=== PATIENT | male | born 1975 | race Caucasian/White ===

== ENCOUNTER → 2020-02-03 | Outpatient (CLI) | payer BC | END | disposition home or self-care (01) | LOC: LABWHC1 15:16 | PROVIDERS: ATTEND Emergency Medicine | DX: Z20.828 Contact with and (suspected) exposure to other viral communicable diseases (principal) | CPT/HCPCS: U0003; C9803 ==

== ENCOUNTER → 2020-02-12 | Outpatient (CLI) | payer BC | END | disposition home or self-care (01) | LOC: LABWHC1 08:39 | PROVIDERS: ATTEND Emergency Medicine | DX: Z20.828 Contact with and (suspected) exposure to other viral communicable diseases (principal) | CPT/HCPCS: U0003; C9803 ==

== ENCOUNTER → 2021-02-10 | Outpatient (CLI) | payer OTHER ==
--- NOTE | 2021-02-10 15:19 | XR ---
EXAMINATION TYPE: XR forearm RT DATE OF EXAM: 02/10/2021 COMPARISON: None HISTORY: Pain after lifting TECHNIQUE: 2 views of the right forearm FINDINGS: Radius aligns normally with the humerus. No acute fracture or dislocation is evident. Soft tissues appear normal.. A follow up exams can be performed 7-10 days from acute trauma for continued pain IMPRESSION: 1. Normal 2 view right forearm.
--- NOTE | 2021-02-10 15:20 | XR ---
EXAMINATION TYPE: XR elbow complete RT DATE OF EXAM: 02/10/2021 COMPARISON: None HISTORY: Pain after lifting TECHNIQUE: 3 view right elbow FINDINGS: Radius aligns normally with the humerus. No acute displaced fractures are evident. Anterior fat pad is normal. No elevation of posterior fat pad is evident. Soft tissues are normal. Graphic fo llow up exams can be performed 7-10 days from acute trauma for continued pain IMPRESSION: 1. Normal three-view right elbow
== END | disposition home or self-care (01) ==
LOC: RADXRMAIN 14:55
PROVIDERS: ATTEND Emergency Medicine
DX: M25.521 Pain in right elbow (principal); M79.631 Pain in right forearm

== ENCOUNTER → 2021-02-24 | Outpatient (CLI) | payer OTHER ==
--- NOTE | 2021-02-25 05:24 | MR ---
EXAMINATION TYPE: MR elbow RT wo con DATE OF EXAM: 02/24/2021 COMPARISON: None HISTORY: Right elbow sprain, lifting injury Multiplanar multiecho imaging of the right elbow without contrast. Triceps tendon is intact. There is elbow joint effusion. There is fluid around the biceps tendon. The re is almost complete avulsion of the biceps tendon from the radial tubercle. The brachialis tendon i s intact. Radial head is intact. There is no evidence of a fracture. The collateral ligaments appear intact. IMPRESSION: Elbow joint effusion with complete tear of the biceps tendon at the radial tuberosity. There is fluid around the tendon. There is no significant retraction. No fracture seen. No evidence of ligamentous tear.
== END | disposition home or self-care (01) ==
LOC: RADMRIMAIN 17:06
PROVIDERS: ATTEND Emergency Medicine
DX: S53.401A Unspecified sprain of right elbow, initial encounter (principal); M25.421 Effusion, right elbow; X58.XXXA Exposure to other specified factors, initial encounter

== ENCOUNTER 2021-03-09 10:44 | Day surgery (SDC) | payer BC, OTHER ==
[2021-03-08 14:30] VITALS: BMI 31.1
--- NOTE | 2021-03-08 18:21 | P.HPOR ---
History of Present Illness H&P Date: 03/08/21 Chief Complaint: Right distal biceps tendon rupture Subjective: This is a 45 year old male that presents today for initial evaluation regarding a right elbow injury that occurred on 02/10/21, patient was lifting a slide door at work and suddenly felt a pop. He was seen at [facility], xrays were taken. He was having continued pain and subsequently an MRI was ordered on 02/24/21 which revealed a complete distal biceps tendon rupture. He presents today with wea kness, pain, and paresthesias on the dorsal radial forearm. Physical Examination: RUE: AIN/PIN/Radial/Ulnar/Median motor intact. Radial/Ulnar/Median SILT. 2+/4 Radial/Ulnar pulses palpated. Positive hook test. TTP in antecubital fossa with weakness with supination. Subjective paresthesias in LABCN distribution. Imaging: X-Rays of the right elbow reviewed from 02/10/21 demonstrate no abnormality. MRI of right elbow from 02/24/21 demonstrate complete tear of the distal biceps from its insertion at the radial tuberosity with minimal retraction present. Impression: 1.) Right distal biceps tendon rupture. Plan: Diagnosis and treatment options were discussed with the patient. We reviewed risks and benefits of operative vs non operative treatment and discussed the functional limitations that non-operative treatment would entail including possible loss of sustained supination strength and flexion strength. He wishes to proceed with surgical intervention after risks and benefits of surgery including bleeding, infection, damage to surrounding tissue, need for further surgery, residual numbness were discussed and the patient wished to go forward with surgery. He patient was agreeable with this plan of action and will be scheduled as soon as possible for right distal biceps tendon repair with Arthrex cortical button tensions slide technique. I anticipate 6-8 weeks off of work until he would be able to use the right arm. Pre op labs/ekg are ordered. -Alejandro Zuleta DO Orthopedic Hand/Upper Extremity Surgeon Past Medical History Past Medical History: Hearing Disorder / Deafness Additional Past Medical History / Comment(s): Tinnitus. Diverticulitis. "Snore a lot, maybe I have Sleep Apnea but have never been tested." History of Any Multi-Drug Resistant Organisms: None Reported Past Surgical History: Hernia Repair Additional Past Surgical History / Comment(s): Umbilical hernia repair. Past Anesthesia/Blood Transfusion Reactions: No Reported Reaction Past Psychological History: No Psychological Hx Reported Smoking Status: Never smoker Past Alcohol Use History: Occasional Past Drug Use History: None Reported - Past Family History Mother Family Medical History: Cancer Additional Family Medical History / Comment(s): Lung Cancer. Medications and Allergies Home Medications Medication Instructions Recorded Confirmed Type Multivitamins, Thera [Multivitamin 1 tab PO DAILY 03/08/21 03/08/21 History (formulary)] Allergies Allergy/AdvReac Type Severity Reaction Status Date / Time No Known Allergies Allergy Verified 03/08/21 14:19 Physical Examination Osteopathic Statement: *. No significant issues noted on an osteopathic structural exam other than those noted in the History and Physical/Consult.
[2021-03-09] MEDS ORDERED: ONDANSETRON 4 MG/2 ML VIAL IVP ONE (11:32)
[2021-03-09] MEDS ORDERED: LACTATED RINGERS 1,000 ML IV SCH (11:32)
[2021-03-09] MEDS ORDERED: LIDOCAINE 1% (10MG/ML) FOR IV START INTRADERMA PRN (11:32)
[2021-03-09 11:48] LABS: Basophils % (A) 1 %; Eosinophils # (A) 0.1 k/uL (0-0.7); Eosinophils % (A) 3 %; HCT 43.3 % (39.0-53.0); HGB 15.8 gm/dL (13.0-17.5); Lymphocytes # (A) 1.6 k/uL (1.0-4.8); Lymphocytes % (A) 37 %; MCH 30.8 pg (25.0-35.0); MCHC 36.5 g/dL (31.0-37.0); MCV 84.4 fL (80.0-100.0); Mean Platelet Volume 10.8; Monocytes # (A) 0.4 k/uL (0-1.0); Monocytes % (A) 10 %; Neutrophils % (A) 46 %; Platelet Count 156 k/uL (150-450); RBC 5.13 m/uL (4.30-5.90); RDW 12.4 % (11.5-15.5); WBC 4.3 k/uL (3.8-10.6)
[2021-03-09] MEDS ORDERED: DEXAMETHASONE SOD PHOSPHATE 4 MG/ML 1 ML VIAL IV ONE (11:54)
[2021-03-09 12:02] LABS: Potassium 4.5 mmol/L (3.5-5.1)
[2021-03-09] MEDS ORDERED: MIDAZOLAM 2 MG/2 ML VIAL IV ONE (12:40)
[2021-03-09] MEDS ORDERED: KETAMINE 10 MG/ML 20 ML VIAL ONE (13:27)
[2021-03-09] MEDS ORDERED: ROPIVACAINE 5 MG/ML 30 ML VIAL ONE (13:27)
[2021-03-09] MEDS ORDERED: .fentaNYL (PF) 50 MCG/ML AMP ONE (13:27)
[2021-03-09] MEDS ORDERED: MIDAZOLAM 2 MG/2 ML VIAL ONE (13:27)
[2021-03-09] MEDS ORDERED: PROPOFOL 10 MG/ML 20 ML VIAL IV ONE (13:27)
[2021-03-09] MEDS ORDERED: LACTATED RINGERS 1,000 ML IV ONE (14:07)
--- NOTE | 2021-03-09 14:35 | P.ANPRN ---
Procedure Note - Anesthesia - Nerve Block Performed Right Supraclavicular Time Out Performed: Yes (:59) Date of Procedure: 03/09/21 Procedure Start Time: :59 Procedure Stop Time: 13:08 Location of Patient: PreOp Indication: Acute Post-Operative Pain, Requested by Surgeon (Dr Zuleta) Sedation Type: Sedate with meaningful contact maintained Preparation: Sterile Prep Position: Supine Catheter: None Needle Types: Pajunk Needle Gauge: Other (see comment) (22g) Ultrasound used to visualize needle placement: Yes Ultrasound used to observe medication spread: Yes Injectate: 0.5% Ropivacaine (see comment for volume) (20cc) Blood Aspirated: No Pain Paresthesia on Injection Noted: No Resistance on Injection: Normal Image Stored and Saved: Yes Events: Uneventful and Well Tolerated
[2021-03-09 16:09] VITALS: TEMP 97.4
[2021-03-09] MEDS: HYDROmorphone 0.5 MG/0.5 ML SYRINGE IVP PRN ×3 (16:26→16:42)
[2021-03-09] MEDS ORDERED: diphenhydrAMINE 50 MG/ML 1 ML VIAL ONE (16:31)
[2021-03-09] MEDS ORDERED: diphenhydrAMINE 50 MG/ML 1 ML VIAL IVP ONE (16:33)
[2021-03-09] MEDS ORDERED: HYDROcodone/APAP 5-325MG 1 EACH TAB ONE (18:31)
[2021-03-09 18:36] VITALS: RESP 16
[2021-03-09 19:02] VITALS: BP 130/85; PULSE 77
--- NOTE | 2021-03-09 19:18 | P.OP ---
Date of Procedure: 03/09/21 Preoperative Diagnosis: Right distal biceps tendon tear Postoperative Diagnosis: Right distal biceps tendon tear Procedure(s) Performed: Right distal biceps tendon tear repair Implants: Arthrex distal biceps cortical button Anesthesia: LEBRONA Surgeon: Alejandro Zuleta Travel Journalist #1: Ponce Mclaughlin Estimated Blood Loss (ml): 10 Pathology: none sent Condition: stable Disposition: PACU Operative Findings: This is a 45 year old male with a history of a right distal biceps tendon rupture that occurred 4 weeks ago while trying to stop a sliding door at work. He presents today for right distal biceps tendon avulsion repair. Risks and benefits of surgery were discussed with the patient including bleeding, damage to surrounding tissue, infection, paresthesias, need for further surgery as well as risks of anesthesia including pulmonary embolism and even and the patient wished to proceed with surgical intervention. The patients was seen in the pre-operative area by myself. Consent and H&P were completed and updated. The correct extremity was marked in the pre-operative area by myself and all other questions were answered. Patient received an upper extremity nerve block by the department of anesthesia. He then was brought to the operating room by the department of anesthesia. He was transferred to the operative table and a rolling hand table was brought to the side of the operative extremity. The patient was then drifted off to sleep by the department of anesthesia. A nonsterile tourniquet was then applied to the operative extremity and the right upper extremity was then prepped and draped in normal sterile fashion. Pre-operative time out was performed indicating the correct patient, procedure and laterality. All in the room agreed. Pre-operative antibiotics were given prior to skin incision. The operative extremity was the exsanguinated with an esmarch bandage and the tourniquet was inflated to 250mmHg. 15 blade scalpel was used to make a 4cm transverse incision 3 cm distal to the anterior elbow antecubital fossa crease. Blunt dissection was then performed in subcutaneous tissues, retractors were placed taking care to not put excessive force laterally to avoid pressure on the LABCN. The distal end of the biceps tendon was identified just proximal to the bicipital grove with extensive scarring and adhesions formed to the surrounding jaylon and vascular structures which were carefully dissected, the end of the tendon was then grasped with an Jazmine clamp. Edges were trimmed of degenerative tissue to create a more profiled distal tip. A number 2 looped fiberwire was then used to sequentially grasp the tendon starting 2.5cm proximal to the distal end. The last stitch was placed in a locking fashion. Tendon sizer was then utilized the the distal tendon was able to fit through a 7mm hole. Attention was then brought back to the antecubital fossa and deeper dissection was taken down to the radial tuberosity. Tendon remnants were debrided carefully with rongeur. The forearm was then maximally supinated to reveal the bicipital tuberosity on the radius in order to move the PIN nerve as far radial as possible. A 3.2mm guide pin was then inserted bicortically into the radial tuberosity aimed 30 degrees ulnarly to avoid PIN damage. Correct placement was then confirmed on flouroscopy. A 7.5mm drill was then used to drill the near cortex only. The wound was then copiously irrigated. The free ends of the suture where then passed through the arthrex cortical button to engage the tension slide mechanism. Cortical button was placed into the button inserted and inserted through the drill hole and deployed. Tension was then applied to snug the cortical button flush against the dorsal cortex. The free suture limbs were then tensioned to fully dock the tendon in the bone tunnel. A free needle was then used to pass one limb through the tendon and a knot was tied. Mini C arm was then used to confirm that the button had flipped and was lying flush against the cortex. The wound was then irrigated. Closure was performed with interrupted 4-0 monocryl suture followed by a running subcuticular suture. Exofin glue was then applied to the wound. 4x4s, webril and a posterior splint with the elbow in slight flexion was applied. The tourniquet was let down and the hand had immediate normal perfusion. The patient was then woken and transferred to PACU in stable condition. Alejandro Zuleta D.O. Orthopedic Hand/Upper Extremity Surgeon
== END 2021-03-09 19:18 | disposition home or self-care (01) ==
LOC: OR 10:44
PROVIDERS: ATTEND Orthopaedic Surgery Hand Surgery
DX: S46.211A Strain of muscle, fascia and tendon of other parts of biceps, right arm, initial encounter (principal); H91.90 Unspecified hearing loss, unspecified ear
CPT/HCPCS: 24342; 64415; 76942; 80051; 85025; C1713 ×2; J2250; J1200; J1100; J0690; J2405; J3010; J2795; J2704; J1170

== ENCOUNTER → 2021-06-10 | Outpatient (CLI) | payer OTHER ==
--- NOTE | 2021-06-10 10:43 | MR ---
EXAMINATION TYPE: MR wrist RT wo con DATE OF EXAM: 06/10/2021 COMPARISON: None HISTORY: Rt wrist/forearm pain, injury 4 mos ago. Standard multiplanar, multisequence MRI departmental protocol Multiplanar, multisequence images of the right breast were acquired without contrast. Diffusion weigh jordana imaging was performed. FINDINGS: The triangular fibrocartilage complex is intact. There is mild cystic degenerative change noted to in volve the scaphoid. There is a small ganglion cyst noted at the radial scaphoid junction posteriorly measuring 6 mm. I do not see evidence for fracture or dislocation. Intercarpal ligaments are intact. Mild narrowing radio carpal joint space. Distal radius and ulna are intact. No evidence of median nerve entrapment. IMPRESSION: 1. No evidence for fracture or dislocation. 2. Cystic degenerative change at the scaphoid. 3. 6 mm ganglion cyst
--- NOTE | 2021-06-10 10:47 | MR ---
EXAMINATION TYPE: MR forearm RT wo con DATE OF EXAM: 06/10/2021 COMPARISON: None HISTORY: Rt wrist/forearm pain, injury 4 mos ago. Standard multiplanar, multisequence MRI departmental protocol Multiplanar, multisequence images of the right were acquired without contrast. Diffusion weighted noemy ging was performed. FINDINGS: Operative changes about the radial tuberosity compatible with prior symptoms tendon rupture. No evide nce for recurrent rupture at this time. I do not see evidence for fracture or dislocation. Visualized tendons are intact. No abnormal fluid collections. An intramuscular hematoma or muscular tears. IMPRESSION: Postoperative changes as noted.
== END | disposition home or self-care (01) ==
LOC: RADMRIMAIN 08:36
PROVIDERS: ATTEND Orthopaedic Surgery Hand Surgery
DX: M67.431 Ganglion, right wrist (principal); M85.641 Other cyst of bone, right hand; S56.911A Strain of unspecified muscles, fascia and tendons at forearm level, right arm, initial encounter; X58.XXXA Exposure to other specified factors, initial encounter